=== PATIENT | male | born 1940 | race Caucasian/White ===

== ENCOUNTER 2019-02-23 18:19 | Emergency (ER) | payer MEDICARE, BC ==
[2019-02-23] MEDS ORDERED: Ibuprofen 800 MG TAB ONE (18:33)
[2019-02-23] MEDS ORDERED: Acetaminophen 500 MG TAB ONE (18:33)
--- NOTE | 2019-02-23 19:15 | RAD ---
THREE VIEWS OF THE LEFT ANKLE: 02/23/19 COMPARISON: None. HISTORY: Fall today with left ankle pain. FINDINGS: Three views of the left ankle shows no evidence of acute fracture or dislocation. Moderate diffuse so ft tissue swelling is seen. No degenerative changes are present. IMPRESSION: No evidence of acute osseous abnormality. POS: C
== END 2019-02-23 19:29 | disposition home or self-care (01) ==
LOC: SCSER 18:19
DX: S00.531A Contusion of lip, initial encounter (principal); S99.912A Unspecified injury of left ankle, initial encounter; W18.30XA Fall on same level, unspecified, initial encounter

== ENCOUNTER 2023-10-01 13:49 | Outpatient (CLI) | payer BC, MEDICARE | END 2023-10-01 13:50 | disposition home or self-care (01) | LOC: SCSRAD 13:49 | PROVIDERS: ATTEND Nurse Practitioner Family | DX: S99.912A Unspecified injury of left ankle, initial encounter (principal); S82.832A Other fracture of upper and lower end of left fibula, initial encounter for closed fracture ==

== ENCOUNTER 2025-04-10 12:30 | Outpatient (CLI) | payer MEDICARE | END 2025-04-10 12:31 | LOC: PET 12:30 | PROVIDERS: ATTEND Urology | DX: C61 Malignant neoplasm of prostate (principal); N42.9 Disorder of prostate, unspecified | CPT/HCPCS: 78815; A9595 ==

== ENCOUNTER 2025-04-27 10:04 | Outpatient (CLI) | payer MEDICARE | END 2025-04-27 10:05 | disposition home or self-care (01) | LOC: SCSMRI 10:04 | PROVIDERS: ATTEND Internal Medicine Hematology & Oncology | DX: C61 Malignant neoplasm of prostate (principal); R90.82 White matter disease, unspecified | CPT/HCPCS: 70553; 76376 ==

== ENCOUNTER 2025-05-14 14:41 | Outpatient (CLI) | payer MEDICARE | END 2025-05-14 14:42 | disposition home or self-care (01) | LOC: SCSBT 14:41 | PROVIDERS: ATTEND Nurse Practitioner Adult Health | DX: C61 Malignant neoplasm of prostate (principal); C79.51 Secondary malignant neoplasm of bone; M81.0 Age-related osteoporosis without current pathological fracture; Z79.818 Long term (current) use of other agents affecting estrogen receptors and estrogen levels; Z79.899 Other long term (current) drug therapy | CPT/HCPCS: 77080 ==